=== PATIENT | female | born 1960 | race Caucasian/White ===

== ENCOUNTER → 2018-01-20 | Day surgery (SDC) | payer OTHER | END | disposition home or self-care (01) | LOC: CIR.AMB 08:19 | DX: N75.1 Abscess of Bartholin's gland (principal) | CPT/HCPCS: 56440; 36561; C1778 ==

== ENCOUNTER 2021-08-01 15:38 | Emergency (ER) | payer OTHER ==
[~2021-08-01] VITALS: Ht 165.1 cm; Wt 54.4 kg
== END 2021-08-01 22:29 | disposition home or self-care (01) ==
LOC: ER 15:38
DX: K29.70 Gastritis, unspecified, without bleeding (principal); Z20.822 Contact with and (suspected) exposure to COVID-19